=== PATIENT | female | born 1995 | race Caucasian/White ===

== ENCOUNTER 2017-05-19 23:07 | Emergency (ER) | payer OTHER ==
[2017-05-19 23:12] VITALS: BP 98/67; PULSE 81; RESP 16; TEMP 98; O2SAT 100
[2017-05-19 23:29] VITALS: RESP 18; O2SAT 99
[2017-05-19] MEDS ORDERED: VENL37.5 PO (23:40)
--- NOTE | 2017-05-19 23:42 | PD ---
HPI Chief Complaint: Syncope/Near-Syncope Time Seen by Provider: 23:38 Travel History International Travel<30 days: No Contact w/Intl Traveler<30days: No Traveled to known affect area: No History of Present Illness HPI The patient is a 21-year-old female that fainted today and Monday. She states she was sitting on her couch and then stood up and fainted. She did not injure self. She does have some nausea without diarrhea. She denies any fever, chest pain, shortness of breath, abdominal pain. She states she does feel dehydrated and is often dehydrated. She was not out in the sun today, she was in an air conditioned environment most all the day. She states she has not missed a menstrual period in doubts that she is . [facility] Past Medical History Anxiety: Yes Depression: Yes Diminished Hearing: No Immunizations Current: Yes Tetanus Vaccination: < 5 Years Influenza Vaccination: Yes ?: Not LMP: 04/16/17 Past Surgical History Oral Surgery: Yes (WISDOM TOOTH) Social History Alcohol Use: No Tobacco Use: No Substance Use: No Allergies-Medications (Allergen,Severity, Reaction): Coded Allergies: Penicillin (Verified Allergy, Unknown, UNKNOWN, 05/19/17) FAMILY ALLERGY Reported Meds & Prescriptions Reported Meds & Active Scripts Active Reported Effexor (Venlafaxine HCl) 37.5 Mg Tab 37.5 Mg PO Q12H Review of Systems Except as stated in HPI: all other systems reviewed are Neg Physical Exam Narrative GENERAL: The patient appears mildly dehydrated but is alert, oriented 3 in no apparent distress. Her blood pressure is 98/67 but the rest the vital signs are normal. SKIN: Focused skin assessment warm/dry. HEAD: Atraumatic. Normocephalic. EYES: Pupils equal and round. No scleral icterus. No injection or drainage. ENT: No nasal bleeding or discharge. Mucous membranes pink and moist. NECK: Trachea midline. No JVD. CARDIOVASCULAR: Regular rate and rhythm. No murmur appreciated. RESPIRATORY: No accessory muscle use. Clear to auscultation. Breath sounds equal bilaterally. GASTROINTESTINAL: Abdomen soft, non-tender, nondistended. Hepatic and splenic margins not palpable. No guarding or rebound is present. MUSCULOSKELETAL: No obvious deformities. No clubbing. No cyanosis. No edema. NEUROLOGICAL: Awake and alert. No obvious cranial nerve deficits. Motor grossly within normal limits. Normal speech. PSYCHIATRIC: Appropriate mood and affect; insight and judgment normal. Data Data Last Documented VS Vital Signs Date Time Temp Pulse Resp B/P Pulse Ox O2 Delivery O2 Flow Rate FiO2 05/20/17 00:07 74 18 114/64 98 Room Air 05/19/17 23:12 98.0 Orders Complete Blood Count With Diff (05/19/17 23:38) Comprehensive Metabolic Panel (05/19/17 23:38) Urinalysis - C+S If Indicated (05/19/17 23:38) Beta Hcg (Quant/Titer) (05/19/17 23:38) Ondansetron Inj (Zofran Inj) (05/19/17 23:45) Sodium Chlor 0.9% 1000 Ml Inj (Ns 1000 M (05/19/17 23:45) Electrocardiogram (05/19/17 23:42) Orthostatic Vital Signs (05/19/17 23:42) Urine Culture (05/20/17 00:00) Labs Laboratory Tests Test 05/19/17 05/20/17 23:40 00:00 White Blood Count 6.1 TH/MM3 Red Blood Count 4.68 MIL/MM3 Hemoglobin 14.4 GM/DL Hematocrit 42.8 % Mean Corpuscular Volume 91.6 FL Mean Corpuscular Hemoglobin 30.7 PG Mean Corpuscular Hemoglobin 33.5 % Concent Red Cell Distribution Width 12.0 % Platelet Count 250 TH/MM3 Mean Platelet Volume 7.1 FL Neutrophils (%) (Auto) 39.3 % Lymphocytes (%) (Auto) 47.1 % Monocytes (%) (Auto) 10.9 % Eosinophils (%) (Auto) 1.9 % Basophils (%) (Auto) 0.8 % Neutrophils # (Auto) 2.4 TH/MM3 Lymphocytes # (Auto) 2.9 TH/MM3 Monocytes # (Auto) 0.7 TH/MM3 Eosinophils # (Auto) 0.1 TH/MM3 Basophils # (Auto) 0.0 TH/MM3 CBC Comment DIFF FINAL Differential Comment Sodium Level 142 MEQ/L Potassium Level 3.8 MEQ/L Chloride Level 106 MEQ/L Carbon Dioxide Level 29.3 MEQ/L Anion Gap 7 MEQ/L Blood Urea Nitrogen 13 MG/DL Creatinine 0.87 MG/DL Estimat Glomerular Filtration 84 ML/MIN Rate Random Glucose 76 MG/DL Calcium Level 9.4 MG/DL Total Bilirubin 0.3 MG/DL Aspartate Amino Transf 24 U/L (AST/SGOT) Alanine Aminotransferase 36 U/L (ALT/SGPT) Alkaline Phosphatase 45 U/L Total Protein 7.6 GM/DL Albumin 4.0 GM/DL Human Chorionic Gonadotropin, LESS THAN 1 Quant MIU/ML Urine Color STRAW Urine Turbidity CLEAR Urine pH 6.0 Urine Specific [place] 1.006 Urine Protein NEG mg/dL Urine Glucose (UA) NEG mg/dL Urine Ketones NEG mg/dL Urine Occult Blood NEG Urine Nitrite NEG Urine Bilirubin NEG Urine Leukocyte Esterase MOD Urine RBC 0-2 /hpf Urine WBC 9-14 /hpf Urine Squamous Epithelial 6-8 /hpf Cells Urine Bacteria FEW /hpf Microscopic Urinalysis Comment CULTURE INDICATED MDM Medical Decision Making Medical Screen Exam Complete: Yes Emergency Medical Condition: Yes Medical Record Reviewed: Yes Interpretation(s) The CBC is unremarkable. The complete metabolic profile shows a GFR of 84 but is otherwise normal. The beta-hCG is less than 1, the patient is not . The urine shows moderate leukocyte esterase with 9-14 white cells and few bacteria and culture is indicated. The EKG shows sinus rhythm with a rate of 72 and is normal. Differential Diagnosis Postural hypotension, dehydration, cardiac syncopehighly unlikely, electrolyte imbalance, renal insufficiency, anemia, urinary tract infection, Narrative Course The patient has a urinary tract infection. The infection along with mild dehydration likely cause for her symptoms when she stood up. Plan: The patient is to hydrate herself well and is given Cipro twice daily for 10 days. Diagnosis Primary Impression: Syncope due to orthostatic hypotension Additional Impression: Urinary tract infection Additional Instructions: As we discussed, make sure you her well-hydrated and take the urinary antibiotic one tablet twice a day for 7 days. The Phenergan is for nausea, you did get nauseated earlier in this should help the nausea. Follow-up next week with your primary care physician. Med/Other Pt SpecificInfo: Prescription(s) given Scripts Promethazine (Phenergan)25 Mg Nettbo45 Mg PO Q6H PRN (NAUSEA OR VOMITING) #20 TAB Ref 0 Prov:Travis Bowser MD 05/20/17 Ciprofloxacin (Cipro)500 Mg Exq057 Mg PO BID 7 Days Ref 0 Prov:Travis Bowser MD 05/20/17 Disposition: 01 DISCHARGE HOME Condition: Stable Travis Bowser MD May 19, 2017 23:42
[2017-05-19] MEDS ORDERED: ONDANSETRON HCL 4 MG/2 ML VIAL IV ONE (23:45)
[2017-05-19] MEDS: SODIUM CHLOR 0.9% 1000 ML INJ 1,000 ML IV SCH (23:49)
[2017-05-19 23:51] LABS: AUTOMATED NEUTROPHIL # 2.4 TH/MM3 (1.8-7.7); BASOPHIL % 0.8 % (0.0-2.0); EOSINOPHIL # 0.1 TH/MM3 (0-0.4); EOSINOPHIL % 1.9 % (0.0-4.0); HEMATOCRIT 42.8 % (35.0-46.0); HEMO FLAGS DIFF FINAL; LYMPH % 47.1 % (9.0-44.0); LYMPHOCYTE # 2.9 TH/MM3 (1.0-4.8); MEAN CELL VOLUME 91.6 FL (80.0-100.0); MEAN CORPUSCULAR HEMOGLOBIN 30.7 PG (27.0-34.0); MEAN CORPUSCULAR HGB CONC 33.5 % (32.0-36.0); MONO % 10.9 % (0.0-8.0); NEUT % 39.3 % (16.0-70.0); PLATELET COUNT 250 TH/MM3 (150-450); RED BLOOD COUNT 4.68 MIL/MM3 (4.00-5.30); WHITE BLOOD COUNT 6.1 TH/MM3 (4.0-11.0)
[2017-05-19 23:58] LABS: CHLORIDE 106 MEQ/L (98-107); POTASSIUM 3.8 MEQ/L (3.5-5.1); SODIUM (NA) 142 MEQ/L (136-145)
[2017-05-20 00:02] LABS: ANION GAP 7 MEQ/L (5-15); BICARBONATE 29.3 MEQ/L (21.0-32.0); BLOOD UREA NITROGEN 13 MG/DL (7-18)
[2017-05-20 00:05] VITALS: BP_SYST 105; BP_SYST 114; BP_DIAS 60; BP_DIAS 64; RESP 18
[2017-05-20 00:07] VITALS: BP 114/64; PULSE 74; RESP 18; O2SAT 98
[2017-05-20 00:07] LABS: ALT (GPT) 36 U/L (9-42); AST (GOT) 24 U/L (16-38); GLOMERULAR FILTRATION RATE 84 ML/MIN (>89); TOTAL BILIRUBIN ADULT 0.3 MG/DL (0.2-1.0)
[2017-05-20 00:08] LABS: ALKALINE PHOSPHATASE 45 U/L (45-117)
[2017-05-20 00:10] LABS: BETA HCG QUANT LESS THAN 1 MIU/ML (0-5)
[2017-05-20 00:13] LABS: BLOOD, URINE NEG (NEG); GLUCOSE,URINE NEG (NEG); KETONE, URINE NEG (NEG); NITRITE,URINE NEG (NEG)
[2017-05-20] MEDS: SODIUM CHLOR 0.9% 1000 ML INJ 1,000 ML IV SCH (00:15)
[2017-05-20 00:22] LABS: BACTERIA, URINE FEW /hpf; COMMENT (UR) CULTURE INDICATED; CULTURE IF INDICATED CULTURE INDICATED; RBC, URINE 0-2 /hpf (0-3); URINE COLOR STRAW (YELLW/STRAW)
[2017-05-20] MEDS ORDERED: CIPR-9 PO (01:01)
[2017-05-20] MEDS ORDERED: PROM25TA10 PO (01:01)
[2017-05-20 01:14] VITALS: BP 104/66; PULSE 88; RESP 18; O2SAT 98
[2017-05-20] MEDS ORDERED: CIPROFLOXACIN 500 MG TAB PO ONE (01:15)
--- NOTE | 2017-05-21 11:47 | EKG ---
Date Performed: 05/19/2017 Time Performed: 23:53:05 PTAGE: 21 years EKG: Sinus rhythm NORMAL ECG NO PREVIOUS TRACING DOCTOR: Julio Florez Interpretating Date/Time 05/21/2017 11:46:01
== END 2017-05-20 01:21 | disposition home or self-care (01) ==
LOC: PHED 23:07
DX: I95.1 Orthostatic hypotension (principal); N39.0 Urinary tract infection, site not specified; E86.0 Dehydration; R11.0 Nausea; Z86.59 Personal history of other mental and behavioral disorders
CPT/HCPCS: 80053; 81001; 84702; 85025; 87086; 93005; 96361; 96374; 99284; J2405; J7030

== ENCOUNTER 2017-06-16 22:17 | Emergency (ER) | payer OTHER ==
[~2017-06-16] VITALS: Ht 165.1 cm; Wt 61.5 kg
[~2017-06-16 22:17] MED LIST: CIPR-9 PO; PROM25TA10 PO; VENL37.5 PO
[2017-06-16 22:19] VITALS: BP 115/76; PULSE 86; RESP 16; TEMP 98; O2SAT 100
--- NOTE | 2017-06-16 23:45 | RADRPT ---
EXAM DATE/TIME: 06/16/2017 23:13 [place] COMPARISON: No previous studies available for comparison. INDICATIONS : Right wrist pain from fall while ice skating. MEDICAL HISTORY : None. SURGICAL HISTORY : None. ENCOUNTER: Initial ACUITY: 1 day PAIN SCORE: 7/10 LOCATION: Right Wrist FINDINGS: Three view examination of the right wrist demonstrates no soft tissue swelling, dislocation, or fract ure. The carpal bones are in normal alignment. The joint spaces are maintained. Bony mineralizatio n is normal. CONCLUSION: Unremarkable examination of the right wrist. Carmelo Aleman MD on June 16, 2017 at 23:42 Board Certified Radiologist. This report was verified electronically.
--- NOTE | 2017-06-16 23:46 | PD ---
HPI Chief Complaint: Injury Time Seen by Provider: 23:44 Travel History International Travel<30 days: No Contact w/Intl Traveler<30days: No Traveled to known affect area: No History of Present Illness HPI Patient comes in for evaluation of right wrist pain that began shortly prior to arrival. Patient states she was ice skating when she fell and caught herself with her wrist. Patient complaining of throbbing/aching pain over the ulnar aspect of the right wrist without radiation. Pain is worse with movement. Patient reports taking ibuprofen prior coming to the emergency department with minimal to no relief of symptoms. Patient denies hitting her head, loss consciousness, or . PFSH Past Medical History Anxiety: Yes Depression: Yes Diminished Hearing: No Immunizations Current: Yes Tetanus Vaccination: Unknown Influenza Vaccination: Yes ?: Not LMP: 05/22/17 Past Surgical History Oral Surgery: Yes (WISDOM TOOTH) Social History Alcohol Use: No Tobacco Use: No Substance Use: No Allergies-Medications (Allergen,Severity, Reaction): Coded Allergies: Penicillin (Verified Allergy, Unknown, UNKNOWN, 06/16/17) FAMILY ALLERGY Reported Meds & Prescriptions Reported Meds & Active Scripts Active Reported Effexor (Venlafaxine HCl) 37.5 Mg Tab 37.5 Mg PO Q12H Review of Systems Except as stated in HPI: all other systems reviewed are Neg Physical Exam Narrative GENERAL: Well-developed, well nourished, in no acute distress, and non-ill appearing. SKIN: Focused skin assessment warm and dry. HEAD: Atraumatic. Normocephalic. EYES: Pupils equal and round. EOMI. No scleral icterus. No injection or drainage. ENT: No nasal bleeding or discharge. Mucous membranes pink and moist. NECK: Trachea midline. Supple. No nuclear rigidity. CARDIOVASCULAR: Radial pulses 2+, intact, and equal bilaterally. Capillary refill less than 2 seconds. RESPIRATORY: No accessory muscle use. No respiratory distress. MUSCULOSKELETAL: No obvious deformities. No clubbing. No cyanosis. No edema. Decreased range of motion right wrist secondary to pain. Wrist: FROM and equal BL with passive flexion, extension, and pronation/supination. Capillary refill less than 2 seconds distal to injury and equal BL. FROM distal to injury and equal BL. Strength distal to injury equal BL. NV intact distal to injury. Flexion and extension of thumb equal BL. Equal strength and movement with abduction/adductions of BL fingers. Cleaner Signs strength equal BL. No tenderness to the anatomical snuffbox. She reports tenderness palpation ulna aspect of right wrist. NEUROLOGICAL: Awake and alert. No obvious cranial nerve deficits. Motor grossly within normal limits. Normal speech. PSYCHIATRIC: Appropriate mood and affect; insight and judgment normal. Data Data Last Documented VS Vital Signs Date Time Temp Pulse Resp B/P Pulse Ox O2 Delivery O2 Flow Rate FiO2 06/17/17 00:08 80 18 122/70 98 Room Air 06/16/17 22:19 98.0 Orders Wrist, Complete ([id number]) (06/16/17 ) Splint Or Brace Apply/Monitor (06/16/17 23:53) Cockup Hand Splint (06/16/17 ) [facility] Medical Decision Making Medical Screen Exam Complete: Yes Emergency Medical Condition: Yes Interpretation(s) X-ray right wrist read by the radiologist shows: Unremarkable examination of the right wrist. Differential Diagnosis Rash, sprain, contusion, other Narrative Course There is no clinical evidence for fracture. There is no clinical evidence to suspect bony injury by exam. Radiographic examination revealed no fracture seen at this time. No obvious ligamental injury or internal derangement is noted at this time. The distal extremity appears neurovascularly intact, without evidence of neurovascular injury nor compartment syndrome. Tendon exam also was intact. The effected limb was splinted. The patient was discharged with sprain and splint care instructions and given warnings for vascular compromise. The patient is to follow up with PCP or hand surgeon. The patient agrees with plan. Patient in no obvious distress upon re-evaluation. All pertinent Radiology result(s) discussed with patient. Any questions/concerns in reference to patient diagnosis/condition discussed and clarified prior to patient's discharge. Reinforced sheer importance of close follow up with patient's primary physician or primary care clinic. Instructed patient to return to ED immediately, if symptoms return/worsen. Pt showed understanding of above instructions. Further instructions and recommendations were detailed in discharge paperwork. Pt ambulated without difficulty out of ED at discharge. Diagnosis Primary Impression: Right wrist sprain Qualified Code: S63.501A - Right wrist sprain, initial encounter Referrals: Emanuel Acosta III, MD Patient Instructions: General Instructions, Splint Care (ED), Wrist Sprain (ED) Additional Instructions: Follow-up with your primary care physician and/or hand surgeon in 3-5 days for reevaluation. Use [id number] Tylenol and/or ibuprofen as needed for pain. Follow instructions on the packaging. Apply ice to affected area 20 minutes prior is needed for pain. Return to the emergency department if symptoms get worse. Disposition: 01 DISCHARGE HOME Condition: Stable Neri Carrington Jun 16, 2017 23:46
[2017-06-17 00:08] VITALS: BP 122/70; PULSE 80; RESP 18; O2SAT 98
== END 2017-06-17 00:15 | disposition home or self-care (01) ==
LOC: NEPD 22:17
DX: S63.501A Unspecified sprain of right wrist, initial encounter (principal); W19.XXXA Unspecified fall, initial encounter; Y93.21 Activity, ice skating; Z88.0 Allergy status to penicillin
CPT/HCPCS: 73110; 99283; L3908